=== PATIENT | female | born 1990 ===

== ENCOUNTER 2017-01-09 17:07 | Emergency (ER) | payer MEDICAID ==
[2017-01-09 17:17] VITALS: BMI 39.9
[2017-01-09 17:18] VITALS: RESP 20; O2SAT 98
--- NOTE | 2017-01-09 17:31 | C.PDOC ---
History Of Present Illness Patient presents to emergency department after a slip and fall. She was moping her floor when she slipped on the wet floor, landing on her buttock. She was able to stand and walk immediately. She is now c/o pain in her lower back and states that she is feeling less movements since falling. She has no bladder or bowel changes and denies any vaginal bleeding or discharge. She has no weakness or numbness or tingling in her legs. - HPI Time Seen by Provider: 01/09/17 17:24 Chief Complaint (Nursing): Trauma History Per: Patient History/Exam Limitations: no limitations Onset/Duration Of Symptoms: Hrs Location Of Injury: Right: Buttock, Left: Buttock Severity: Mild Past Medical History Vital Signs: Last Vital Signs Temp 98.0 F 01/09/17 17:17 Pulse 64 01/09/17 17:17 Resp 20 01/09/17 17:17 BP 131/85 01/09/17 17:17 Pulse Ox 98 01/09/17 17:17 - Medical History PMH: No Chronic Diseases Surgical History: - [facility] Procedures LOW CERVICAL (04/15/14) Family History: States: No Known Family Hx - Social History Hx Tobacco Use: No Hx Alcohol Use: No Hx Substance Use: No - Immunization History Hx Tetanus Toxoid Vaccination: Yes Hx Influenza Vaccination: No Hx Pneumococcal Vaccination: No Review Of Systems Except As Marked, All Systems Reviewed And Found Negative. Genitourinary: Positive for: Other (Decreased movements) Musculoskeletal: Positive for: Back Pain Physical Exam - Physical Exam Appears: Well, No Acute Distress Skin: Normal Color, Warm, Dry Head: Atraumatic Eye(s): bilateral: Normal Inspection, PERRL, EOMI Respiratory: Normal Breath Sounds, Decreased Breath Sounds Gastrointestinal/Abdominal: Other (Gravid abdomen, uterus nontender) Pelvic: Enlarged Uterus Extremity: Normal ROM Extremity: Bilateral: Atraumatic, Hips Non-Tender, Normal Color And Temperature Neurological/Psych: Oriented x3, Normal Speech, Normal Cognition, Normal Motor, Normal Sensation, Normal Reflexes Gait: Steady Extremity: Right: No Drift, Left: No Drift, Upper: No Drift, Lower: No Drift ED Course And Treatment O2 Sat by Pulse Oximetry: 98 Disposition Counseled Patient/Family Regarding: Diagnosis - Disposition Referrals: [facility] at [facility] [Outside] Disposition: HOME/ ROUTINE Disposition Time: 17:41 Condition: STABLE Additional Instructions: Patient transferred to evaluation Unit for monitoring. Forms: [employer] (Croatian) - Clinical Impression Clinical Impression: Contusion of lower back
[2017-01-09 19:22] LABS: RBC URINE 11 /hpf (0-3); URINE BACTERIA FEW (<OCC); URINE BILIRUBIN NEGATIVE (NEGATIVE); URINE BLOOD 1+ (NEGATIVE); URINE COLOR Yellow (YELLOW); URINE GLUCOSE (UA) NORMAL (Normal); URINE KETONE NEGATIVE (NEGATIVE); URINE LEUKOCYTE ESTERASE 3+ Leu/uL (Negative); URINE PROTEIN NEGATIVE (NEGATIVE); URINE UROBILINOGEN NORMAL mg/dL (0.2-1.0); WBC URINE 21 /hpf (0-5)
[2017-01-09] MEDS ORDERED: Lactated Ringer's 1,000 ML IV ONE (19:52)
--- NOTE | 2017-01-09 20:22 | US ---
EXAM: US Biophysical Profile Without Non-Stress Testing CLINICAL HISTORY: 26 years old, female; Pain; Pain indication: Mild lower pelvic pain; ; Patient HX: S/P fall; Additional info: S/P fall; Hit buttock; Prev c/s; A1gdm TECHNIQUE: Real-time ultrasound of the maternal pelvis for biophysical profile evaluation with image documentation. EXAM DATE/TIME: Exam ordered 01/09/2017 6:37 PM COMPARISON: No relevant prior studies available. FINDINGS: Biometry BPD = [9.19 cm]; Estimated Menstrual Age = [37w2d]; Range = [38Z8T-69 W4D] HC = [32.26 cm]; Estimated Menstrual Age = [36w3 d]; Range = [65T1E-43C3D] AC = [33.07 cm]; Estimated Menstrual Age = [37w0d]; Range = [25F5G-81B1N] FL = [7.08 cm]; Estimated Menstrual Age = [36W2D]; Range = [25M5J-24P3W] HC/AC Ratio = [0.98] Normal 0.92-1.06 EFW = 3034 g plus or -455 g/6 lbs. 11 oz. plus or -1 lb. 0 oz. KARLY= 12.42 (normal 6.53-27.07) Placenta: Anterior Presentation: Vertex HR =[155 bpm] Cervical length 2.88 cm. Survey Stomach [Normal] Kidneys [Normal] Bladder [Normal] 4 extremities [Normal] breathing movements: Present. Score 2/2. Gross body movements: Present. Score 2/2. tone: Present. Score 2/2. Qualitative amniotic fluid volume: Within normal limits. Score 2/2. IMPRESSION: 1. Single live intrauterine with an estimated menstrual age of 36 weeks and 5 days plus or -2 weeks and 4 days. Expected date of confinement 02/01/2017. 2. Normal biophysical profile ultrasound. Score 8/8. 3. The cervix is 2.8 cm in length
[2017-01-09] MEDS ORDERED: ceFAZolin IV 1 gm in Dextrose 1 GM/50 ML BAG IVPB ONE (21:00)
[2017-01-09] MEDS ORDERED: ceFAZolin IV 2 gm in Dextrose 1 GM/50 ML BAG IVPB ONE (21:00)
[2017-01-09 22:49] VITALS: BP 105/85; PULSE 57; TEMP 98
--- NOTE | 2017-01-10 16:13 | OBHP ---
Datetime: 01/09/2017 19:04 IP Adm Impression: Term, intrauterine IP Chief Complaint Other: Fell on buttocks; hit head IP Admit Plan: Observation/Evaluation Admit Comment, IP Provider: Patient received in Treatment Room on at 1855 hours, Soila Goins attending to patient, also serves as maori liaison adviser. Patient is predominantly Arabic-speaking 26 y.o. , LMP 04/20/16, PILY 01/25/17, EGA 37w 5d - referred for evaluation after bein g seen in E.D. - S/P fall at 1345 hours. Patient was mopping the floor i her apartment, slipped on t he wet floor. Landed on her buttocks; hit her back and back of her head. Denies any dizziness prior t o fall. Denies any loss of consciousness after fall, nausea or vomiting; no headache; no loss of urin e or feces. Patient states she was able to get up immediately after the fall, and checked to see if there was any blood or fluid from her vagina - there was none. She rested for a while but after a few hours, with increasing aching in her back, lower abdominal cramps, and decreased FM, decided to come in for evaluation. See separate E.D. report. Currently in Ob-ED, continues to report decreased FM. Denies LOF, VB or Ctx. F.S. today: fasting 89; 2 hours post breakfast 99. care: [facility]; noted for A1GDM; obesity; previous C/S; GBS (+); PPD (+) - CXR 11/05/16 (-). S/P ECHO (seconda ry to suboptimal view of cardiac organs at time of anatomic study) - grossly normal. P Ob: 2013, C/S, female, 9lb 2oz, A2GDM. [facility]; no post op complications. VTOP x 1, 201 2, 2-3 months, with D_C; no complications. 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 Denies STIs PMH: GDM, as above PSH: C/S x 1; D_C x 1 NKDA Meds: PNV Soc Hx: denies tobacco, illicit drug or EtOH use. With FOB x 6 years; lives with him and daughter . Fam Hx: Mother and father alive; both 67 y.o. Mother - no med issues. Father - DM. No known fam h /o cancer P.E.: as above. Obese, in NAD; appears uncompfortable. Awake, alert, oriented to time, person and place. Pleasant and cooperative Assessment: 26 y.o. P1011, 37w 5d, A1 GDM, morbid obesity, previous C/S. S/P fall, hitting her ba ck and head. Grossly normal limited neurology evaluation in E.D. F.S. obtained in Ob-ED - 93 mg/dL. Category 1 tracing. Uterine contractions noted. Clinically stable Plan: 1) Ob ultrasound with BPP 2) U/A Addendum: 2030 hours patient returns from ultrasound: report reviewed: [facility]; EFW 6lb 110z; BPS 8/8. 1) reports improved FM 2) U/A reviewed: noted for leuk esterase 3+; protein (-) glucose (-) - all the above D/W patient. Will hydrate, administer 1 dose of IV antibiotics for early UTI and o bserve. Patient expresesd an understanding and agrees. Still feels achy; will give tylenol. Plan 1) IVFs - LR 2) Ancef 2 grams IVPB x 1 3) Tylenol 650 mg x 1 2150 hours: No more contractions. Patient reports (+) FM - improved. Lower abodminal cramps has improved. Assessment: 26 y.o. P1011, 36w 5d; S/P fall on her buttocks; early UTI. A1 GDM, previous C/S. Cat egory 1 tracing. Clinically stable. Plan: 1) Discharge home 2) Keflex 500 mg 1 tab p.o. BID x 7days 3) Continue F.S. log 4) Keep scheduled appointments Lungs - PN: Normal Heart - PN: Normal Thyroid - PN: Not Done Neurologic - PN: Normal HEENT - PN: Normal General - PN: Normal Presentation-Admit: Vertex FHR - Baseline A Provider: 140 Comments, ACOG Physical Exam: Abdomen: Gravid. Soft. Non tender in all quadrants. Back: no CVA tenderness. (+) point tenderness over lower lumbar/coccygeal area. No bruises All other systems reviewed and are negative Gestation - Est Wks by US: 37w 5d IP Hx Assessment: The History has been Reviewed and is Current EGA AdmitDate IP: 37.5 IP Chief Complaint: Trauma/Fall NICHD Variability Prov Fetus A: Moderate 6-25bpm NICHD Accel Fetus A IP Provider: [id number] FHR Category Provider Fetus A: Category I NICHD Decel Fetus A IP Provider: None
== END 2017-01-09 21:50 | disposition home or self-care (01) ==
LOC: C.ER 17:07 → C.EROB 17:07
DX: S09.90XA Unspecified injury of head, initial encounter (principal); S39.92XA Unspecified injury of lower back, initial encounter; W01.0XXA Fall on same level from slipping, tripping and stumbling without subsequent striking against object, initial encounter; Y93.E5 Activity, floor mopping and cleaning; Y92.039 Unspecified place in apartment as the place of occurrence of the external cause; O26.893 Other specified pregnancy related conditions, third trimester; Z3A.37 37 weeks gestation of pregnancy
CPT/HCPCS: 76815; 76818; 81001; 82948; 96374; 99285; J0690; J7120

== ENCOUNTER 2017-01-18 05:07 | Inpatient (IN) | payer MEDICAID ==
[2017-01-18 05:48] VITALS: BMI 42.5
[2017-01-18] MEDS ORDERED: Sodium Citrate/Citric Acid 15 ml Sol PO ONE (06:51)
[2017-01-18 06:56] LABS: BASO % 0.2 % (0.0-2.0); EOS % 0.4 % (0.0-4.0); HEMATOCRIT 37.9 % (34.0-47.0); LYMPH # 3.1 K/uL (1.0-4.3); LYMPH % 35.5 % (20.0-40.0); MEAN CORPUSCULAR HEMOGLOBIN 28.3 pg (27.0-31.0); MEAN CORPUSCULAR HGB CONC 33.9 g/dL (33.0-37.0); MEAN PLATELET VOLUME 10.6 fL (7.2-11.7); MONO # 0.4 K/uL (0.0-0.8); MONO % 5.1 % (0.0-10.0); NRBC % 0.1 % (0.0-2.0); RED CELL DISTRIBUTION WIDTH 16.3 % (11.5-14.5); WHITE BLOOD COUNT 8.7 K/uL (4.8-10.8)
[2017-01-18 06:57] LABS: MEAN CELL VOLUME 83.7 fL (81.0-99.0)
[2017-01-18] MEDS ORDERED: Lactated Ringer's 1,000 ML IV SCH (07:00)
[2017-01-18 07:03] LABS: ALKALINE PHOSPHATASE 166 U/L (38-126); ALT/SGPT 23 U/L (9-52); AST/SGOT 28 U/L (14-36); BILIRUBIN,TOTAL 0.3 mg/dL (0.2-1.3); BLOOD UREA NITROGEN 10 mg/dL (7-17); CALCIUM 8.4 mg/dl (8.6-10.4); CARBON DIOXIDE 17 mmol/L (22-30); CHLORIDE 104 mmol/L (98-107); GFR AFRICAN-AMERICAN > 60; GLUCOSE,RANDOM 86 mg/dL (65-105); POTASSIUM 3.6 mmol/L (3.6-5.2); SODIUM 133 mmol/L (132-148); TOTAL PROTEIN 6.6 g/dL (6.3-8.3)
[2017-01-18] MEDS ORDERED: Sodium Citrate/Citric Acid 15 ml Sol ONE (07:27)
[2017-01-18] MEDS ORDERED: cefOXitin IV 2 gm in Dextrose 2 GM/50 ML BAG IVPB ONE ×2 (07:27→08:00)
[2017-01-18] MEDS ORDERED: Morphine 1 mg/ml preservative-free Inj(Duramorph) ONE (07:42)
[2017-01-18] MEDS ORDERED: Oxytocin 10 Units/ml Inj ONE (07:48)
--- NOTE | 2017-01-18 07:52 | OBADHP ---
Datetime: 01/18/2017 07:48 Admit Comment, IP Provider: chief complait-scehduled csection HPI 26 y/o at 39 wga here for schedueld csection.Patient denies nausea, vomiting, headache, c hest pain, shortness of breath coure -gdm diet [id number]; hx of psoitive ppd; previous csection P Ob: 2014, C/S, female, 9lb 2oz, A2GDM. [facility]; no post op complications. VTOP x 1, 201 2, 2-3 months, with D_C; no complications. 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 Denies STIs PMH: GDM, as above; obesity PSH: C/S x 1; D_C x 1 Social hx denies tobacco,alcohol or illicit drug use Exam see exam section A/P 26 y/o at 39 wga here for scheduled csection a-dmit -see orders NKDA Pelvic Type - PN: Adequate Extremities - PN: Normal Abdomen - PN: Normal Back - PN: Normal Lungs - PN: Normal Heart - PN: Normal Neurologic - PN: Normal General - PN: Normal Gestation - Est Wks by US: 39.0 IP Hx Assessment: The History has been Reviewed and is Current Vital Signs Provider: Reviewed; Within Normal Limits IP Chief Complaint: Scheduled Section FHR Category Provider Fetus A: Category I Genitourinary Exam: Normal DTRs - PN: Normal EGA AdmitDate IP: 39.0 IP Adm Impression: Term, intrauterine IP Admit Plan: Admit to unit; Initiate Section protocol Datetime: 01/09/2017 19:04 IP Chief Complaint Other: Fell on buttocks; hit head Thyroid - PN: Not Done HEENT - PN: Normal Presentation-Admit: Vertex FHR - Baseline A Provider: 140 Comments, ACOG Physical Exam: Abdomen: Gravid. Soft. Non tender in all quadrants. Back: no CVA tenderness. (+) point tenderness over lower lumbar/coccygeal area. No bruises All other systems reviewed and are negative NICHD Variability Prov Fetus A: Moderate 6-25bpm NICHD Accel Fetus A IP Provider: 15X15 NICHD Decel Fetus A IP Provider: None
[2017-01-18 08:09] LABS: RBC URINE 18 /hpf (0-3); URINE BACTERIA RARE (<OCC); URINE BILIRUBIN NEGATIVE (NEGATIVE); URINE BLOOD 1+ (NEGATIVE); URINE COLOR Yellow (YELLOW); URINE GLUCOSE (UA) NORMAL (Normal); URINE KETONE NEGATIVE (NEGATIVE); URINE LEUKOCYTE ESTERASE 3+ Leu/uL (Negative); URINE PROTEIN 1+ mg/dL (NEGATIVE); URINE UROBILINOGEN NORMAL mg/dL (0.2-1.0); WBC URINE 15 /hpf (0-5)
[2017-01-18] MEDS ORDERED: DiphenhydrAMINE 50 mg/ml Inj IVP PRN (09:55)
[2017-01-18] MEDS ORDERED: Naloxone 0.4 mg/ml Inj (Adult) IVP PRN (09:55)
[2017-01-18] MEDS ORDERED: Oxycodone/Acetaminophen 5/325 mg Tab PO PRN (10:50)
--- NOTE | 2017-01-18 11:21 | OBDS ---
DELIVERY PERSONNEL Delivery Doctor: Tina Mantilla MD Scrub Nurse: Polly Sigala OBT Crystallography Teacher: Darcie Cleveland RN Anesthesiologist: Sydney Cervantes MD MATERNAL INFORMATION Delivery Anesthesia: Spinal Estimated Blood Loss (ml): 800 Provider Comments: repeat csection done adhesions between uterus and omentum lysed viable male in vertex presentation.agars 02/16 at 1 and 5 min of life ebl 800cc LABOR SUMMARY EDC: 01/25/2017 00:00 No. Babies in Womb: 1 STAGES OF LABOR Stage 3 hrs: 0 Stage 3 min: 1 CSECTION DELIVERY Primary Indication: Repeat Elective Secondary Indication: Repeat Elective CSection Urgency: Elective CSection Incidence: Repeat Labor: No Labor Elective: Elective CSection Incision: Lower Uterine Transverse Uterine Closure: Double-layer closure BABY A INFORMATION Delivery Date/Time: 01/18/2017 08:26 Method of Delivery: Born in Route : No : N/A Forceps: N/A Vacuum Extraction: N/A Shoulder Dystocia : No SHOULDER DYSTOCIA BABY A Delivery Date/Time: 01/18/2017 08:26 PRESENTATION/POSITION BABY A Presentation: Cephalic Cephalic Presentation: Vertex Vertex Position: Left Occipital Anterior Breech Presentation: N/A PLACENTA INFORMATION BABY A Placenta Delivery Time : 01/18/2017 08:27 Placenta Method of Delivery: Manual Removal Placenta Status: Delivered SCORES BABY A Heart Rate 1 min: >100 bpm Resp Effort 1 min: Good Cry Reflex Irritability 1 min: Cough or Sneeze or Pulls Away Muscle Tone 1 min: Active Motion Color 1 min: Body [place], Extremities Blue Resuscitation Effort 1 min: Tactile Stimulation SCORE 1 MIN: 9 Heart Rate 5 min: >100 bpm Resp Effort 5 min: Good Cry Reflex Irritability 5 min: Cough or Sneeze or Pulls Away Muscle Tone 5 min: Active Motion Color 5 min: Body [place], Extremities Blue Resuscitation Effort 5 min: N/A SCORE 5 MIN: 9 INFORMATION BABY A Gestational Age at Delivery: 39.0 Gestational Status: Term Outcome : Liveborn Condition : Stable Sex: Male IDENTIFICATION/MEDS BABY A ID Band Number: [id number] ID Band Location: Left Leg; Left Arm Sensor Applied: Yes Sensor Number: [id number] Sensor Location : Cord Clamp Vitamin K Given : Not Given Erythromycin Given: Not Given WEIGHT/LENGTH BABY A Infant Birthweight (gms): 3535 Weight (lb): 7 Infant Weight (oz): 13 Infant Length Inches: 20.25 Infant Length cms: 51.4 CORD INFORMATION BABY A No. Cord Vessels: 3 Nuchal Cord : N/A Cord Blood Taken: Yes Suction: Mouth; Nose
[2017-01-19 07:16] LABS: BASO # 0.1 K/uL (0.0-0.2); BASO % 0.7 % (0.0-2.0); EOS % 0.1 % (0.0-4.0); HEMATOCRIT 32.9 % (34.0-47.0); LYMPH # 2.1 K/uL (1.0-4.3); LYMPH % 18.8 % (20.0-40.0); MEAN CELL VOLUME 83.5 fL (81.0-99.0); MEAN CORPUSCULAR HEMOGLOBIN 28.2 pg (27.0-31.0); MEAN CORPUSCULAR HGB CONC 33.8 g/dL (33.0-37.0); MEAN PLATELET VOLUME 9.6 fL (7.2-11.7); MONO # 0.5 K/uL (0.0-0.8); MONO % 4.3 % (0.0-10.0); RED CELL DISTRIBUTION WIDTH 16.6 % (11.5-14.5)
[2017-01-19 08:15] VITALS: RESP 18
[2017-01-19] MEDS: Prenatal Multivit/Folic Acid/Iron Tab PO SCH (09:40)
[2017-01-19] MEDS: Simethicone 80 mg Chewtab PO SCH ×4 (09:40→22:16)
[2017-01-19] MEDS: Oxycodone/Acetaminophen 5/325 mg Tab PO PRN ×2 (12:49→22:13)
--- NOTE | 2017-01-19 14:49 | OP ---
PROCEDURE DATE: 01/18/2017 PREOPERATIVE DIAGNOSES: 1. Previous section. 2. Term intrauterine . 3. Declined trial of labor. 4. Gestational diabetes, diet controlled. POSTOPERATIVE DIAGNOSES: 1. Previous section. 2. Term intrauterine . 3. Declined trial of labor. 4. Gestational diabetes, diet controlled. PROCEDURE PERFORMED: Repeat lower transverse section SURGEON: Dr. Fabricio Mantilla. REINFORCING STEEL PLACER: Dr. Harinder Nichols. Please note that the procedure required surgical services director to assist with entry into the abdominal cavity, to assist with dissection of the tissues, to assist with the delivery of the and also to assist with the closure of the abdominal wall. The surgical services director was present and scrubbed for the entire duration of the procedure. TYPE OF ANESTHESIA: Spinal. ANESTHESIOLOGIST: Dr. Bishnu Cervantes. FINDINGS: A male infant in vertex presentation with Apgars of 9 at 1 minute and 9 at 5 minutes of life. Normal tubes and ovaries bilaterally. Adhesions between the uterus and the omentum as well as the uterus and the left pelvic sidewall. SPECIMEN: Placenta and cord blood. PROCEDURE IN DETAIL: After informed consent was obtained, the patient was taken to the operating room where spinal anesthesia was administered by the anesthesia team. She was thereafter placed in dorsal supine position with a leftward tilt. She was then prepped and draped in the usual sterile manner. The Cantu catheter was confirmed to be draining clear urine. After it was confirmed that she had adequate anesthesia, a Pfannenstiel skin incision was made in the previous scar and this incision was carried down to the underlying layer of the fascia with the help of the Bovie. The fascia was then incised in the midline and the incision was extended laterally with the help of Bovie as well. The superior aspect of the fascial incision was then grasped with Daryn clamp, elevated and the underlying rectus muscles were dissected off. Attention was then turned to the inferior aspect of the fascial incision, which in a similar fashion was grasped with Daryn clamp, elevated, and the underlying rectus muscles dissected off. The rectus muscles were then in the midline. The peritoneum was entered by picking up with hemostatic clamps and entered sharply with Metzenbaum scissors. The peritoneal incision was bluntly stretched. At this point, it was noted that there were omental adhesions to the uterus. These adhesions were clamped and cut with the hemocautery and suture ligated. Adequate hemostasis was noted. Adhesions between the uterus and left pelvic sidewall were also noted and these were sharply dissected. The lower uterine segment was identified and at this point, it was determined that the patient has a very narrow pelvis. The transverse incision was made over the lower uterine segment with the help of a scalpel. This incision was extended laterally with the help of bandage scissors. The membranes were then ruptured and the infant's head was then delivered from vertex presentation. The body and shoulders were delivered without any difficulty. The cord was then clamped and cut. The was handed over to the waiting solar design engineer. Cord blood was then collected and the placenta was then removed. The uterus was then exteriorized and cleared off all clots and debris. The uterine incision was repaired with a 0 Polysorb in a running locked fashion. Second layer of same suture was used to imbricate the first layer and also to obtain hemostasis. Adequate hemostasis was noted from the uterus except for the mid section, which was suture ligated with 0 Monocryl with [id number] sutures. Adequate hemostasis was noted at the uterine incision repair site. The uterus was then returned to the patient's abdomen and the gutters were irrigated and suctioned. The uterine incision repair site was inspected for hemostasis and adequate hemostasis was noted in the uterine incision repair site. Surgicel was placed over the uterine incision. The muscle area was re-approximated with 2-0 Polysorb via mattress suture. The fascia was closed with 0-Vicryl in the running fashion. The subcutaneous tissue was re-approximated with 2-0 Polysorb in a continuous manner. The skin was then closed with davida. The sponge, lap, needle, and instrument count was correct x3 as reported to me at the end of the procedure. The patient tolerated the procedure well. The patient was thereafter cleaned and taken to the recovery room in stable condition. The Cantu catheter was left in situ for postop bladder drainage. Fabricio Mantilla MD
--- NOTE | 2017-01-19 15:02 | OBPPN ---
Datetime: 01/19/2017 14:22 PP Pain Prov: Within normal limits PP Nausea Prov: Denies PP Flatus Prov: No PP BM Prov: No PP Breasts Prov: Not Done PP Heart Prov: Normal PP Lungs Prov: Normal (Annotations: Data stored by N on behalf of user) PP Abdomen/Uterus Prov: Normal PP Lochia Prov: Normal PP Vulva/Perineum Prov: Not Done PP CVA Tenderness Prov: Normal PP Extremities Prov: Normal PP C/S Incision Prov: Normal PP Progress Prov: Normal PP Comments Phys Exam Prov: Abdomen: Obese. Softly distended. (+) ABS. Dressing clean and dry. Uteru s appropriately tender at fundus, 1 FB below umbilicus; firm, mobile. Extremities: no calf tenderness; 1+ pedal edema. All other systems reviewed and are negative PP Impression Prov: Normal progression PP Plan Prov: Continue present management PP Progress Note Prov: Patient received sitting on edge of bed; , and first son also present. Had 1 episode of vomiting last night; none since. (+) Incisional pain, 8/10; relieved by pain medic aitons. Ambulated to bathroim; voided. Denies flatus or BM. Attempting to breastfeed P.E.: as above. Obese, in NAD. Awake, alert, oriented to time, person and place. Cooperative - POD#1 H/H 11.1/32.4. Rh(+) Assessment: POD#1, 26 y.o. P2 S/P repeat LTCS. Afebrile, vital signs stable. Returning GI and functions. Encouraged to ambulate. Clinically stable. Plan: 1) Continue present management Vital Signs Provider PP: Reviewed
[2017-01-20] MEDS: Oxycodone/Acetaminophen 5/325 mg Tab PO PRN (02:19)
--- NOTE | 2017-01-20 07:29 | OBDCSUM ---
Datetime: 01/20/2017 07:27 Discharged to, Provider: Home Follow up at, Provider: Clinic Disch Instr Activity: Normal activity Disch Instr Diet: Regular Discharge Instructions, Provider: Routine instructions given Discharge Diagnosis, Provider: Term Delivered Discharge Time: 01/20/2017 11:00 Follow up in weeks, Provider: 1 week Disch Referrals: None Contraception discussed, Prov: Yes Disch Activity Restrictions: No sexual activity; Nothing in vagina - [place], tampons, douche Discharge Comment, Provider: Pt advsied if fever, >100.4, chills, nausea, ovmiitng, pain, heavy blee ding more than 2 pads/ hours, lightheadness dizyness, CP, SOB, headaches, go to nearest ER and call d octor/ provider Contraception after Delivery: Not Planning to Use
--- NOTE | 2017-01-20 07:33 | OBPPN ---
Datetime: 01/20/2017 07:28 PP Pain Prov: Within normal limits PP Nausea Prov: Denies PP Flatus Prov: Yes PP BM Prov: No PP Breasts Prov: Normal PP Heart Prov: Normal PP Lungs Prov: Normal PP Abdomen/Uterus Prov: Normal PP Lochia Prov: Normal PP Vulva/Perineum Prov: Normal PP CVA Tenderness Prov: Normal PP Extremities Prov: Normal PP C/S Incision Prov: Normal PP Progress Prov: Normal PP Impression Prov: Normal progression PP Plan Prov: Discharge PP Progress Note Prov: Pt seen and examined and reports feeling well requesting discharge. Pt report s pain is controlled with pain medication. Pt denies any headaches, fevers, chills, nausea, vomiting, CP, SOB. Pt is tolerating regular diet. pt is ambulating, voiding, passing flatus, +BM, breast feedi ng and denies any feelings of sadness or depression. pt reports she has good social support. VSS PE: Gen: NAD, AAOx 3 Resp: CTAB/l CVS: RRR, +S1/S2 Breasts: non tender, non engoarged Abdomen: Soft, non distended. Non tender, no guarding, no reboudn tenderness, no rigidity, +BS Fundus firm, non tender, below umbilicus. VE: minimal lochia, non foul smelling Incision : clean, dry and intact. Extremities: no calf tenderness, negative homans sign All other systems reviewed and are negative. A/P s/p PLTCS POD #2 doing well, requesting discharge d/c home f/u clinic 1 week for incisin check Precautions given IP PP Procedures: None Vital Signs Provider PP: Reviewed; Within Normal Limits
[2017-01-20] MEDS: Prenatal Multivit/Folic Acid/Iron Tab PO SCH (09:21)
[2017-01-20] MEDS: Simethicone 80 mg Chewtab PO SCH ×4 (09:21→21:56)
[2017-01-21] MEDS: Oxycodone/Acetaminophen 5/325 mg Tab PO PRN (00:36)
--- NOTE | 2017-01-21 07:35 | OBPPN ---
Datetime: 01/21/2017 07:31 PP Pain Prov: Within normal limits PP Nausea Prov: Denies PP Flatus Prov: Yes PP Abdomen/Uterus Prov: Normal PP Lochia Prov: Normal PP Extremities Prov: Normal PP Comments Phys Exam Prov: fudus below umblicus ext no edema,no calf ten incsion clean and dry PP Impression Prov: Normal progression PP Plan Prov: Discharge PP Progress Note Prov: pt was seen at bed side, pain under control, no n/v, tolerating deit, voiding ,min lochia, flatus + pod#3 s/p xc/s dc home no sex percocet prn f/u in clinic /saturday for davida removal Vital Signs Provider PP: Reviewed; Within Normal Limits
--- NOTE | 2017-01-21 07:35 | OBDCSUM ---
Datetime: 01/21/2017 07:33 Discharged to, Provider: Home Follow up at, Provider: /saturday Discharge Diagnosis, Provider: Term Delivered Follow up in weeks, Provider: clinic Disch Activity Restrictions: No exercising; No lifting; No driving; Minimize walking; Minimize stair -climbing; No sexual activity; Nothing in vagina - [place], tampons, douche Discharge Comment, Provider: dc home no sex percocet prn f/u in clinic /saturday for davida removal Discharge Diagnosis Prov Other: s/p c/s
--- NOTE | 2017-01-21 07:56 | CP.PCM.DIS ---
Provider - Provider Date of Admission: 01/18/17 05:07 Attending physician: Tavares Wright MD Time Spent in preparation of Discharge (in minutes): 45 Hospital Course - Lab Results Lab Results: Most Recent Lab Values WBC 11.0 K/uL (4.8-10.8) H 01/19/17 07:04 RBC 3.94 Mil/uL (3.80-5.20) 01/19/17 07:04 Hgb 11.1 g/dL (11.0-16.0) 01/19/17 07:04 Hct 32.9 % (34.0-47.0) L 01/19/17 07:04 MCV 83.5 fL (81.0-99.0) 01/19/17 07:04 MCH 28.2 pg (27.0-31.0) 01/19/17 07:04 MCHC 33.8 g/dL (33.0-37.0) 01/19/17 07:04 RDW 16.6 % (11.5-14.5) H 01/19/17 07:04 Plt Count 246 K/uL (130-400) 01/19/17 07:04 MPV 9.6 fL (7.2-11.7) 01/19/17 07:04 Neut % (Auto) 76.1 % (50.0-75.0) H 01/19/17 07:04 Lymph % (Auto) 18.8 % (20.0-40.0) L 01/19/17 07:04 Sharkey % (Auto) 4.3 % (0.0-10.0) 01/19/17 07:04 Eos % (Auto) 0.1 % (0.0-4.0) 01/19/17 07:04 Baso % (Auto) 0.7 % (0.0-2.0) 01/19/17 07:04 Neut # 8.4 K/uL (1.8-7.0) H 01/19/17 07:04 Lymph # 2.1 K/uL (1.0-4.3) 01/19/17 07:04 Sharkey # 0.5 K/uL (0.0-0.8) 01/19/17 07:04 Eos # 0.0 K/uL (0.0-0.7) 01/19/17 07:04 Baso # 0.1 K/uL (0.0-0.2) 01/19/17 07:04 Sodium 133 mmol/L (132-148) 01/18/17 06:47 Potassium 3.6 mmol/L (3.6-5.2) 01/18/17 06:47 Chloride 104 mmol/L (98-107) 01/18/17 06:47 Carbon Dioxide 17 mmol/L (22-30) L 01/18/17 06:47 Anion Gap 16 (10-20) 01/18/17 06:47 BUN 10 mg/dL (7-17) 01/18/17 06:47 Creatinine 0.5 MG/DL (0.7-1.2) L 01/18/17 06:47 Est GFR ( Amer) > 60 01/18/17 06:47 Est GFR (Non-Af Amer) > 60 01/18/17 06:47 POC Glucose (mg/dL) 85 mg/dL (65-110) 01/19/17 06:33 Random Glucose 86 mg/dL (65-105) 01/18/17 06:47 Calcium 8.4 mg/dl (8.6-10.4) L 01/18/17 06:47 Total Bilirubin 0.3 mg/dL (0.2-1.3) 01/18/17 06:47 AST 28 U/L (14-36) 01/18/17 06:47 ALT 23 U/L (9-52) 01/18/17 06:47 Alkaline Phosphatase 166 U/L (38-126) H 01/18/17 06:47 Total Protein 6.6 g/dL (6.3-8.3) 01/18/17 06:47 Albumin 3.3 g/dL (3.5-5.0) L 01/18/17 06:47 Globulin 3.3 gm/dL (2.2-3.9) 01/18/17 06:47 Albumin/Globulin Ratio 1.0 (1.0-2.1) 01/18/17 06:47 Urine Color Yellow (YELLOW) 01/18/17 06:47 Urine Clarity Hazy (Clear) 01/18/17 06:47 Urine pH 5.0 (5.0-8.0) 01/18/17 06:47 Ur Specific Lamont 1.021 (1.003-1.030) 01/18/17 06:47 Urine Protein 1+ mg/dL (NEGATIVE) H 01/18/17 06:47 Urine Glucose (UA) Normal mg/dL (Normal) 01/18/17 06:47 Urine Ketones Negative mg/dL (NEGATIVE) 01/18/17 06:47 Urine Blood 1+ (NEGATIVE) H 01/18/17 06:47 Urine Nitrate Negative (NEGATIVE) 01/18/17 06:47 Urine Bilirubin Negative (NEGATIVE) 01/18/17 06:47 Urine Urobilinogen Normal mg/dL (0.2-1.0) 01/18/17 06:47 Ur Leukocyte Esterase 3+ Karena/uL (Negative) H 01/18/17 06:47 Urine WBC (Auto) 15 /hpf (0-5) H 01/18/17 06:47 Urine RBC (Auto) 18 /hpf (0-3) H 01/18/17 06:47 Ur Squamous Epith Cells 22 /hpf (0-5) H 01/18/17 06:47 Urine Bacteria Rare (<OCC) 01/18/17 06:47 RPR Nonreactive (NONREACTIVE) 01/18/17 06:47 Blood Type A POSITIVE 01/18/17 07:12 Antibody Screen Negative 01/18/17 07:12 - Hospital Course Hospital Course: Ms. Busby is a 26yo at 39 wga who came on 01/18/17 for scheduled c- section. Patient denied n/v/d, headaches, chest pain or shortness of breath. course was complicated by GDM that was diet-controlled. Pt has hx of + ppd and a prior . pt was admitted. POb: 2013, female 9lb2oz, A2GDM, [facility], no post-op complications. VTOP x1, 2011, 2-2 months with D&C, no complications. PGyn: 13 x monthly x 4-5. denies STI's PMH: GDM and obesity PSH: (1 prior), and D&C SHx: denies tobacco, ETOH or illicit drug use Pt underwent the elective repeat on 01/18/17, received spinal anesthesia. Adhesions were noted between uterus and omentum and were lysed. Viable male infant in vertex position UDAY, presented cephalic, 9/9 at 1 and 5 mins of life, respectively. Baby weighed [id number] (3535gms). EBL 800cc. Pt was appropriately managed post-op, with medications for pain and proper diet advancing. On 01/20/17, pt was tolerating regular diet, +BM, ambulating well, breast feeding and requesting discharge home. Exam showed soft, NT/ND abdomen with fundus firm, non tender and below umbilicus. Minimal lochia, non-foul smelling. Incision was clean, dry and intact. No calf tenderness. Pt was optimized for discharge and is going home on 01/21/17 and instructed to f/u clinic on /Sat for davida removal. Percocet script written PRN for pain. Pt is advised to not exercise, do heavy lifting, and avoid sexual activity with nothing in the vagina for 6 weeks. - Date & Time of H&P Date of H&P: 01/18/17 Time of H&P: 07:50 Discharge Exam - Head Exam Head Exam: NORMAL INSPECTION - Eye Exam Eye Exam: EOMI, Normal appearance, PERRL - ENT Exam ENT Exam: Mucous Membranes Moist - Cardiovascular Exam Cardiovascular Exam: RRR. absent: JVD - GI/Abdominal Exam GI & Abdominal Exam: Normal Bowel Sounds. absent: Distended, Tenderness Additional comments: Fundus firm, non-tender below level of umbilicus - Extremities Exam Additional comments: no calf tenderness -Homans sign - Neurological Exam Neurological exam: Alert, Normal Gait, Oriented x3 - Psychiatric Exam Psychiatric exam: Normal Affect, Normal Mood - Skin Skin Exam: Normal Color Discharge Plan - Discharge Medications Prescriptions: oxyCODONE/Acetaminophen [Percocet 5/325 mg Tab] 1 ea PO Q6 #20 tab - Follow Up Plan Condition: GOOD Disposition: HOME/ ROUTINE Instructions: Section (DC), Caring for Your Baby (DC), Your Baby (DC), and Nipple Soreness (DC), How to Tell if Your Baby is Getting Enough Breast Milk (DC), and Your Diet (DC), Surgical Site Infections (DC)
[2017-01-21] MEDS: Simethicone 80 mg Chewtab PO SCH (09:17)
[2017-01-21] MEDS: Prenatal Multivit/Folic Acid/Iron Tab PO SCH (09:17)
[2017-01-21 15:51] VITALS: BP 125/84; PULSE 68; TEMP 98; O2SAT 99
== END 2017-01-21 11:10 | disposition home or self-care (01) | DRG 371 ==
LOC: C.4D 05:07 → C.4M 12:30
PROVIDERS: ADMIT Obstetrics & Gynecology; ATTEND Obstetrics & Gynecology
PROC: 10D00Z1 Extraction of Products of Conception, Low, Open Approach (ICD-10-PCS; principal; 2017-01-18)
DX: O34.211 Maternal care for low transverse scar from previous cesarean delivery (principal); O24.420 Gestational diabetes mellitus in childbirth, diet controlled; O99.214 Obesity complicating childbirth; E66.9 Obesity, unspecified; Z37.0 Single live birth; Z3A.39 39 weeks gestation of pregnancy